=== PATIENT | female | born 1980 | race Caucasian/White ===

== ENCOUNTER 2020-07-30 15:03 | Observation (INO) | payer OTHER, BC ==
[~2020-07-30] VITALS: Ht 154.9 cm; Wt 49.9 kg
[2020-07-30] MEDS ORDERED: VERA120ERB PO (15:27)
[2020-07-30 15:28] LABS: BASOPHILS ABSOLUTE AUTO 0.06 K/mm3 (0.00-0.23); BASOPHILS PERCENT AUTO 1 % (0-2); EOSINOPHILS ABSOLUTE AUTO 0.82 K/mm3 (0.00-0.68); EOSINOPHILS PERCENT AUTO 9 % (0-6); Hematocrit 37.1 % (33.0-51.0); IMMATURE GRAN ABSOLUTE AUTO 0.01 K/mm3 (0.00-0.10); IMMATURE GRAN PERCENT AUTO 0 % (0-1); LYMPHOCYTES PERCENT AUTO 21 % (21-46); MONOCYTES ABSOLUTE AUTO 0.72 K/mm3 (0.16-1.47); MONOCYTES PERCENT AUTO 8 % (4-13); Mean Corpuscular HGB 33.5 pg (26.0-34.0); Mean Corpuscular HGB Conc 32.3 g/dL (31.5-36.5); Mean Corpuscular Volume 104 fL (80-100); Mean Platelet Volume 10.4 fL (9.1-12.4); NEUTROPHILS ABSOLUTE AUTO 5.28 K/mm3 (1.96-9.15); NEUTROPHILS PERCENT AUTO 61 % (41-73); Platelet Count 265 K/mm3 (150-400); RDW Coefficient Variation 11.8 % (11.7-14.2); RDW Standard Deviation 44.8 fL (35.1-46.3); Red Blood Cell Count 3.58 M/mm3 (3.80-5.20); White Blood Cell Count 8.69 K/mm3 (4.00-11.30)
[2020-07-30] MEDS ORDERED: TROKENDI XR200 MG PO (15:28)
[2020-07-30] MEDS ORDERED: METO100 PO (15:29)
[2020-07-30] MEDS ORDERED: MONT10T PO (15:29)
[2020-07-30] MEDS ORDERED: HYDR1TAB94 PO (15:29)
[2020-07-30] MEDS ORDERED: ALBU90OI INH (15:30)
[2020-07-30] MEDS ORDERED: ALBU90OI6 (15:30)
[2020-07-30 15:46] LABS: Alanine Aminotransfer (ALT/SGP 50 U/L (12-78); Albumin, Blood 3.7 g/dL (3.4-5.0); Albumin/Globulin Ratio 1.4 (0.8-1.8); Alk Phos 66 U/L (50-136); Anion Gap 8 mmol/L (6-16); Aspartate Aminotrans (AST/SGOT 34 U/L (12-37); Bilirubin, Total 0.2 mg/dL (0.1-1.0); Blood Urea Nitrogen 11 mg/dL (8-24); Bun/Creatinine Ratio 13.5 (12.0-20.0); CO2, Blood 23 mmol/L (21-32); Calcium, Blood 8.3 mg/dL (8.5-10.1); Chloride, Blood 110 mmol/L (98-108); Creatinine, Blood 0.82 mg/dL (0.40-1.00); Globulin, Blood 2.6 g/dL (2.2-4.0); Glomerular Filtration Rate >60 (60-); Glucose, Blood 61 mg/dL (70-99); Potassium, Blood 3.7 mmol/L (3.5-5.5); Sodium, Blood 141 mmol/L (136-145); Total Protein, Blood 6.3 g/dL (6.4-8.2)
[2020-07-30 15:47] LABS: Source, Urine Clean Catch
[2020-07-30 15:56] LABS: Appearance, Urine Hazy (Clear); Bilirubin, Urine Neg (Neg); Blood, Urine Neg (Neg); Color, Urine Yellow (P-Yellow); Glucose Qualitative, Urine 1+ (Neg); Ketones, Urine Neg (Neg); Leukocyte Esterase, Urine Neg (Neg); Nitrite, Urine Neg (Neg); Protein, Urine Neg (Neg); Urobilinogen, Urine NORM (Normal)
[2020-07-30 16:13] LABS: Amorphous Light (0-Heavy); Bacteria Many /hpf; Red Blood Cells, Urine Not Seen /hpf (0-2); Squamous Epithelial Cells Mod /hpf (Few); White Blood Cells, Urine 0-2 /hpf (0-5)
[2020-07-30 16:15] LABS: U Amphetamine Screen Not Detected; U Barbituate Screen DETECTED; U Benzodiazapine Screen DETECTED; U Buprenorphine Screen Not Detected; U Cannabinoids Screen Not Detected; U Cocaine Screen Not Detected; U Methadone Screen Not Detected; U Methamphetamine Screen Not Detected; U Opiates Screen DETECTED; U Oxycodone Screen Not Detected; U Phencyclidine Screen Not Detected; U Propoxyphene Screen Not Detected
[2020-07-30] MEDS ORDERED: BUPR100 PO (19:31)
[2020-07-30] MEDS ORDERED: ADVAIR HFA 230-28 GM INH (19:32)
[2020-07-30] MEDS ORDERED: Flonase 0.05% N16 GM (19:32)
[2020-07-30] MEDS ORDERED: DIAZ2 PO (19:32)
[2020-07-30] MEDS ORDERED: GABA300 PO (19:33)
[2020-07-30] MEDS ORDERED: CYCLOBENZAPRINE5 MG PO (19:33)
--- NOTE | 2020-07-30 22:26 | NUR ---
transfer report from [employer]PRESENTATIV[employer]UNCAN Smith on 39 year old PT being admitted OBS status for hypoglycemia with EMS BG 42 & currently BG reported greater than 100 with D51/2 NS running. Await admission.
[2020-07-31 05:11] LABS: BASOPHILS ABSOLUTE AUTO 0.08 K/mm3 (0.00-0.23); BASOPHILS PERCENT AUTO 1 % (0-2); EOSINOPHILS ABSOLUTE AUTO 0.72 K/mm3 (0.00-0.68); EOSINOPHILS PERCENT AUTO 13 % (0-6); Hematocrit 33.9 % (33.0-51.0); Hemoglobin 11.2 g/dL (11.5-16.0); IMMATURE GRAN ABSOLUTE AUTO 0.01 K/mm3 (0.00-0.10); IMMATURE GRAN PERCENT AUTO 0 % (0-1); LYMPHOCYTES ABSOLUTE AUTO 1.64 K/mm3 (0.84-5.20); LYMPHOCYTES PERCENT AUTO 30 % (21-46); MONOCYTES ABSOLUTE AUTO 0.49 K/mm3 (0.16-1.47); MONOCYTES PERCENT AUTO 9 % (4-13); Mean Corpuscular HGB 33.9 pg (26.0-34.0); Mean Corpuscular Volume 103 fL (80-100); Mean Platelet Volume 11.2 fL (9.1-12.4); NEUTROPHILS PERCENT AUTO 47 % (41-73); Platelet Count 229 K/mm3 (150-400); RDW Coefficient Variation 11.9 % (11.7-14.2); RDW Standard Deviation 45.3 fL (35.1-46.3); White Blood Cell Count 5.54 K/mm3 (4.00-11.30)
[2020-07-31 05:22] LABS: Anion Gap 6 mmol/L (6-16); Blood Urea Nitrogen 13 mg/dL (8-24); Bun/Creatinine Ratio 18.7 (12.0-20.0); CO2, Blood 21 mmol/L (21-32); Chloride, Blood 114 mmol/L (98-108); Glomerular Filtration Rate >60 (60-); Glucose, Blood 101 mg/dL (70-99); Potassium, Blood 3.8 mmol/L (3.5-5.5); Sodium, Blood 141 mmol/L (136-145)
--- NOTE | 2020-07-31 06:50 | NUR ---
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 PT had large lunch of pizza & soda & became weak & lightheaded & went down so coworkers called EMS & PT reported BG of 42 which reponded to dextrose. She was getting D5 1/2 with 20 meq kcl over 1 l has over 300 ml of second liter. She ate when provided meal & snack. BG 170 & 101 this AM. She had Covid 19 in Mid apr 2020 & was sick for 3 weeks.
--- NOTE | 2020-07-31 16:57 | NUR ---
PT DISCHARGED THE PT VERBALIZED UNDERSTANDING OF THE DC INSTRUCTIONS, THE PT WAS SCHEULED FOR FOLLOW UP WITH HER PCP PRIOR TO DC, THE PT WAS A/OX4, BREATHING EASILY AT THE TIME OF DC, DENIED DIZZINESS OR LIGHT HEADEDNESS, PT WAS TRANSFERED VIA WHEELCHAIR ACCOMPANIED BY HER SPOUSE
[2020-08-04 18:08] LABS: FREE INSULIN 10 uU/mL (.); TOTAL INSULIN 10 uU/mL (.)
== END 2020-07-31 15:24 | disposition home or self-care (01) ==
LOC: ER 15:03 → MEDS 15:04 → ERHOLD 15:04 → MEDS 22:34
PROVIDERS: Emergency Medicine; Nurse Practitioner Acute Care; ADMIT Internal Medicine
DX: E16.2 Hypoglycemia, unspecified (principal); J45.909 Unspecified asthma, uncomplicated; G89.29 Other chronic pain; M54.9 Dorsalgia, unspecified; I10 Essential (primary) hypertension; Z86.16 Personal history of COVID-19; Z98.84 Bariatric surgery status
CPT/HCPCS: 36415; 80048; 80053; 81001; 81025; 82947; 83525; 83527; 84206; 84439; 84443; 84481; 84681; 85025; 87086; 94640; 94760; 96372; 96374; 96375; 96376; 99285; A9270; G0378; J1650; J2405

== ENCOUNTER 2021-08-14 09:08 | Observation (INO) | payer BC ==
[~2021-08-14] VITALS: Ht 154.9 cm; Wt 52.4 kg
[~2021-08-14 09:08] MED LIST: ADVAIR HFA 230-28 GM INH; ALBU90OI INH; ALBU90OI6; BUPR100 PO; CYCLOBENZAPRINE5 MG PO; DIAZ2 PO; Flonase 0.05% N16 GM; GABA300 PO; HYDR1TAB94 PO; METO100 PO; MONT10T PO; TROKENDI XR200 MG PO; VERA120ERB PO
[2021-08-14 10:21] LABS: Source, Urine Clean Catch
[2021-08-14 10:23] LABS: Bilirubin, Urine Neg (Neg); Blood, Urine 1+ (Neg); Glucose Qualitative, Urine Neg (Neg); Ketones, Urine Neg (Neg); Leukocyte Esterase, Urine Neg (Neg); Nitrite, Urine Neg (Neg); Protein, Urine Neg (Neg); Specific Gravity, Urine 1.005 (1.003-1.022); Urobilinogen, Urine NORM (Normal)
[2021-08-14 10:27] LABS: BASOPHILS ABSOLUTE AUTO 0.08 K/mm3 (0.00-0.23); BASOPHILS PERCENT AUTO 1 % (0-2); EOSINOPHILS ABSOLUTE AUTO 1.68 K/mm3 (0.00-0.68); EOSINOPHILS PERCENT AUTO 24 % (0-6); Hematocrit 34.5 % (33.0-51.0); Hemoglobin 11.1 g/dL (11.5-16.0); IMMATURE GRAN ABSOLUTE AUTO 0.02 K/mm3 (0.00-0.10); IMMATURE GRAN PERCENT AUTO 0 % (0-1); LYMPHOCYTES ABSOLUTE AUTO 1.92 K/mm3 (0.84-5.20); LYMPHOCYTES PERCENT AUTO 27 % (21-46); MONOCYTES ABSOLUTE AUTO 0.64 K/mm3 (0.16-1.47); MONOCYTES PERCENT AUTO 9 % (4-13); Mean Corpuscular HGB 32.7 pg (26.0-34.0); Mean Corpuscular HGB Conc 32.2 g/dL (31.5-36.5); Mean Corpuscular Volume 102 fL (80-100); Mean Platelet Volume 10.5 fL (9.1-12.4); NEUTROPHILS ABSOLUTE AUTO 2.71 K/mm3 (1.96-9.15); NEUTROPHILS PERCENT AUTO 39 % (41-73); Platelet Count 267 K/mm3 (150-400); RDW Coefficient Variation 13.8 % (11.7-14.2); RDW Standard Deviation 52.6 fL (35.1-46.3); Red Blood Cell Count 3.39 M/mm3 (3.80-5.20); White Blood Cell Count 7.05 K/mm3 (4.00-11.30)
[2021-08-14 10:51] LABS: Appearance, Urine Clear (Clear); Bacteria Not Seen /hpf; Color, Urine Yellow (P-Yellow); Red Blood Cells, Urine 0-2 /hpf (0-2); Squamous Epithelial Cells Few /hpf (Few); White Blood Cells, Urine Not Seen /hpf (0-5)
[2021-08-14 10:57] LABS: Albumin, Blood 3.6 g/dL (3.4-5.0); Albumin/Globulin Ratio 1.3 (0.8-1.8); Bilirubin, Total 0.2 mg/dL (0.1-1.0); Bun/Creatinine Ratio 14.9 (12.0-20.0); Calcium, Blood 8.5 mg/dL (8.5-10.1); Creatinine, Blood 0.67 mg/dL (0.40-1.00); Free Thyroxine 0.93 ng/dL (0.70-1.60); Globulin, Blood 2.8 g/dL (2.2-4.0); Potassium, Blood 3.9 mmol/L (3.5-5.5); Thyroid Stimulating Hormone 1.77 uIU/mL (0.360-4.800); Total Protein, Blood 6.4 g/dL (6.4-8.2)
[2021-08-14] MEDS ORDERED: Desyrel150 MG PO (15:45)
[2021-08-14] MEDS ORDERED: PROC5 PO (15:47)
--- NOTE | 2021-08-14 16:28 | NUR ---
ADMIT PT ARRIVED TO PCU 17 VIA GURNEY AND WAS ABLE TO TRANSFER HERSELF TO THE PCU BED. PT WAS ABLE TO THEN GET UP TO THE BR WITH SBA. PT WAS SLIGHTLY UNSTEADY ON HER FEET. PT WAS ABLE TO ANSWER ALL ADMIT QUESTIONS BUT SHE IS QUITE SLEEPY AND HAD TO BE WOKEN UP A COUPLE TIMES. SHE IS ORIENTED. PT'S AT THE BEDSIDE. PT STATES THE HYPOGLYCEMIC EPISODES HAVE BEEN GOING ON FOR A YEAR AND IS QUESTIONING IF SHE REALLY NEEDS TO BE ADMITTED TO THE HOSPITAL. EXPLAINED TO PT HER CURRENT GLUCOSE IS IN NORMAL RANGE WHILE SHE IS RECEIVING A LOT OF SUGAR THROUGH HER IV. PT THEN FELL BACK ASLEEP. ADMIT PAPERWORK COMPLETED. PLAN OF CARE FOR THE NIGHT REVIEWED WITH PT AND HER . CONTINUE TO MONITOR.
--- NOTE | 2021-08-14 17:57 | NUR ---
SHIFT SUMMARY PT HAS BEEN SLEEPING SINCE ARRIVING ON THE UNIT. SHE WAKES EASILY TO VOICE. BLOOD SUGAR STEADY AROUND 110 WITH D10 DRIP INFUSING. ONLY ATE HER RICE OFF OF DINNER TRAY. INFORMED OF DR. BERGER'S RECOMMENDATIONS TO ELGIN GANT ABOUT A LOW CARB, HIGH FAT, HIGH PROTEIN DIET TO HELP STABILIZE BLOOD SUGARS TO WHICH PT SAID "HMM." PT IS AWAKE WATCHING TV CURRENTLY. CONTINUING TO MONITOR.
--- NOTE | 2021-08-15 05:23 | NUR ---
PT IS A&OX4, SBA TO BR AND IS ABLE TO MAKE NEEDS KNOWN. Q2H BS HAVE BEEN LESS THAN 125 ALL SHIFT, REMAINS ON D10 RUNNING AT 125 ML/HR. PT IS SOMNOLENT, SLEEPS MOST OF THE SHIFT 10+ HOURS. BP HAS BEEN SOFT, 1L FLUID BOLUS GIVEN. EDUCATED PT ON DIET, PT WAS RECEPTIVE BUT WOULD FALL ASLEEP DURING EDUCATION. PT IS PLEASANT WITH CARES AND CALLS APPROPRIATELY. WILL CONTINUE TO MONITOR AND GIVE HANDOFF REPORT TO ONCOMING NURSE.
--- NOTE | 2021-08-15 09:00 | NUR ---
ASSUMED CARE PT. ALERT AND OREINTED THIS AM. DENIES ANY PAIN AT THIS TIME. PT. SITTING UP IN BED TALKING ON THE PHONE. VSS THIS AM. CALL LIGHT IN REACH.
--- NOTE | 2021-08-15 09:57 | NUR ---
CALL FROM DR. BERGER PER DR. BERGER DEXTROSE GTT TITRATED DOWN TO 75ML/HR WILL RECHECK BG IN 2 HOURS THEN TURN OFF.
--- NOTE | 2021-08-15 09:58 | NUR ---
CALL TO TILLER MAN AFTER SPEAKING WITH DR. BERGER HE ASKED PT BE INSTRUCTED ON LOW CARB HIGH FAT HIGH PROTEIN DIET. BEDSIDE EDUCATION DONE, PT. NEEDING ADDITIONAL INFORMATION AND EXAMPLES OF WHAT TO EAT. PT. STATES "ARE CHIPS LOW CARB?". AFTER EDUCATION PT STATES "I DO BETTER WITH PICTURES, JUST GIVE ME PICTURES OF WHAT TO EAT". TILLER MAN UPDATED AND PLANS TO CONSULT WITH PT.
--- NOTE | 2021-08-15 13:26 | NUR ---
ROUNDED ON PT. RESTING COMFORTABLY IN BED, UP INDEPENDENTLY TO BATHROOM, PT DENIES FEELING DIZZY OR WEAK. PT. IV FLUID CHANGED TO D5. PT ATE 80% OF LUNCH TRAY. CALL LIGHT IN REACH, S/O AT BEDSIDE. MED WITH TYLENOL FOR HEADACHE. VSS.
--- NOTE | 2021-08-15 14:24 | NUR ---
DR. AC IN TO SEE PT. BG CHECKED 95, PER D5 INFUSION PLACED ON STAND BY. PLANS TO RECHECK BG IN 2 HOURS.
--- NOTE | 2021-08-15 16:07 | NUR ---
Gasket Maker suspects possible hyperinsulinemic hypoglycemia d/t pt's prior gastric bypass surgery, so RD consult was placed for low CHO diet education. Pt reported low nutrition literacy to RN and requested visual education materials. Nutrition education was provided on reactive hypoglycemia and the importance of limiting CHO consumed in short periods of time. Recommended pt aim for 30 g CHO at 3 meals/d and 15-30 g CHO at 3 snacks/d. Recommended pt check her blood sugars 1-2 hours after a meal if she tries going above this recommendation. Reviewed sources of CHO and serving sizes. Encouraged pt to read nutrition labels and reviewed tips for accurately determining CHO content. Educated on nutrition content of pt's favorite foods (chili with beans, chips, and rice). Recommended liberal intake of protein and fat. Pt reported that she feels this diet will be difficult to follow but she feels able to try it. Pt was uanble to stay awake initially during nutrition assessment, but was able to participate more after drinking juice. It is unclear if pt was still somewhat confused during education. Moderate compliance expected.
--- NOTE | 2021-08-15 17:25 | NUR ---
BLOOD SUGARS PT. LAST TWO BG CHECKS IN THE 70S OFF OF DEXTROSE GTTS. PT. UP IN ROOM. DENIES ANY DIZZINESS AT THIS TIME. CALL TO DR. BROWN TO DISCUSS PLAN FOR DISCHARGE. AWAITING DR TO TALK WITH PT FOR DECISION TO DISCHARGE.
--- NOTE | 2021-08-15 17:57 | NUR ---
AFTER TALKING WITH DR. GREENBERG ASKED TO SPEAK TO REGARDING STAYING OR BEING DISCHARGED. PT DECIDED TO STAY ONE MORE NIGHT FOR BG MONITORING. PT FRUSTRATED BUT UNDERSTANDS THE RECOMMENDATION. BG TO BE CHECKED Q4H THIS PM
--- NOTE | 2021-08-15 18:03 | NUR ---
SHIFT SUMMARY PT. REMAINS ALERT AND ORIENTED T/O SHIFT WITH FLAT AFFECT. PT AT BEDSIDE T/O DAY. PT. VSS. BG TRENDING DOWN WITH OUT DEXTROSE GTT. PLANS FOR Q4H MONITORING. PT. EATING T/O DAY HOWEVER EVEN AFTER EDUCATION PT CONTINUES TO NEED FREQUENT REMINDING TO MEAL CHOICES. CALL LIGHT IN REACH, INDEPENDENT IN ROOM TODAY. PLANS FOR D/C IN AM IF BG STAYS STABLE. REPORT TO ONCOMING RN.
--- NOTE | 2021-08-16 05:27 | NUR ---
PT IS A&OX4, INDEPENDENT IN ROOM AND IS ABLE TO MAKE NEEDS KNOWN. NO ACUTE CHANGES THIS SHIFT. PT SLEEPS BETWEEN CARES, SLEEPS 7+ HOURS THIS SHIFT. BLOOD GLUCOSE REMAINS STABLE, HAS BEEN IN THE 80s. ALL FLUIDS HAVE BEEN STOPPED. PT TOLERATING CURRENT DIET. HAS BEEN MORE AWAKE THIS MORINING. WILL CONTINUE TO MONITOR THIS PT AND GIVE HANDOFF REPORT TO ONCOMING NURSE.
--- NOTE | 2021-08-16 07:33 | NUR ---
AM NOTE Pt alert, oriented. Pt reporting headache 09/21, medicated with tylenol, pt reports she take firocet at home for headahces. Pt denies pain, chest pain, sob, nausea, dizziness and lightheadedness. Tele sinus 70's, bp 104/67, holding cardiac medication per parameters. Ls clear t/o, spo2 >90% on ra, resp rate wnl, breathing even and unlabored. Bt normoactive X4 quad, last documentated bm 08/09/21, pt states "normal" for her. CBG Q4. Other vss. Will continue to monitor. Pt expressing desire to go home. Uses [facility] for pharmacy.
--- NOTE | 2021-08-16 11:59 | NUR ---
DISCHARGE SUMMARY No s/sx of distress noted, no acute changes noted. CBG stable. Vss. Educated pt on discharge insturctions, follow up appointments and no changes to medications. CLarified home diet with Dr Grossman, continue high protein and focus on complex carb and avoid simple sugars and artifical sugars, pt educated. Pt left room on foot, per her request at approx [phone]. Pt has vehicle in parking lot to drive self home.
== END 2021-08-16 11:41 | disposition home or self-care (01) ==
LOC: ER 09:08 → PCU 15:14
PROVIDERS: Emergency Medicine; ADMIT Internal Medicine
DX: E16.2 Hypoglycemia, unspecified (principal); J45.909 Unspecified asthma, uncomplicated; I10 Essential (primary) hypertension; G89.29 Other chronic pain; M54.9 Dorsalgia, unspecified; Z98.84 Bariatric surgery status
CPT/HCPCS: 74177; 80053; 81001; 81025; 82010; 82533; 82947; 83036; 84439; 84443; 85025; 94640; 94664; 94760; 96361; 96374-59; 99285-25; A9270; J1610; J7030; J7060; J7070; Q9967